=== PATIENT | female | born 1990 | race Two or more races ===

== ENCOUNTER 2019-03-17 20:23 | Emergency (ER) | payer OTHER ==
[~2019-03-17] VITALS: Ht 170.2 cm; Wt 59.0 kg
[2019-03-17 20:32] VITALS: BP 139/80
[2019-03-17] MEDS ORDERED: IBUPROFEN 400 MG TABLET ONE (22:12)
[2019-03-17] MEDS ORDERED: CYCLOBENZAPRINE 10 MG TABLET ONE (22:12)
[2019-03-17] MEDS ORDERED: CYCLOBENZAPRINE 10 MG TABLET PO ONE (22:30)
[2019-03-17] MEDS ORDERED: IBUPROFEN 400 MG TABLET PO ONE (22:30)
== END 2019-03-17 22:21 | disposition home or self-care (01) ==
LOC: ER 20:28
DX: S16.1XXA Strain of muscle, fascia and tendon at neck level, initial encounter (principal); Z88.6 Allergy status to analgesic agent; V49.49XA Driver injured in collision with other motor vehicles in traffic accident, initial encounter; Y93.89 Activity, other specified; Y92.413 State road as the place of occurrence of the external cause; Y99.8 Other external cause status